=== PATIENT | male | born 1995 | race African-American/Black ===

== ENCOUNTER 2017-05-06 00:44 | Emergency (ER) | payer SELFPAY ==
[2017-05-06] MEDS ORDERED: SUCRALFATE 1 GM TABLET PO ONE (01:29)
[2017-05-06] MEDS ORDERED: FAMOTIDINE 20 MG TABLET PO ONE (01:29)
--- NOTE | 2017-05-06 01:31 | ER Document Report ---
ED GI/ - General Chief Complaint: Vomiting Stated Complaint: POSSIBLE FOOD POISONING Time Seen by Provider: 05/06/17 01:22 Notes: Patient is a 21-year-old male that comes emergency department for chief complaint of vomiting after eating, he states that 3 weeks ago he ate a hamburger and vomited afterwards and he has had this problem ever since. He states when he eats he becomes nauseated and sometimes he vomits. He denies any pain in the abdomen. He denies any hematemesis, he states he had a normal bowel movement 2 days ago, he denies fever, he denies any other symptoms. He takes no daily medications, has been taking some [id number] Pepto-Bismol, denies any surgeries or medical problems. TRAVEL OUTSIDE OF THE [place] IN LAST 30 DAYS: No Past Medical History - General Information source: Patient - Social History Smoking Status: Never Smoker Frequency of alcohol use: None Drug Abuse: None Lives with: Alone Family History: Reviewed & Not Pertinent Patient has suicidal ideation: No Patient has homicidal ideation: No - Medical History Medical History: Negative Renal/ Medical History: Denies: Hx Peritoneal Dialysis Surgical Hx: Negative - Immunizations Immunizations up to date: Yes Hx Diphtheria, Pertussis, Tetanus Vaccination: - unk tetanus Review of Systems - Review of Systems Constitutional: No symptoms reported EENT: No symptoms reported Cardiovascular: No symptoms reported Respiratory: No symptoms reported Gastrointestinal: See HPI Genitourinary: No symptoms reported Male Genitourinary: No symptoms reported Musculoskeletal: No symptoms reported Skin: No symptoms reported Hematologic/Lymphatic: No symptoms reported Neurological/Psychological: No symptoms reported Physical Exam - Vital signs Vitals: Temp Pulse Resp BP Pulse Ox 98.3 F 60 14 150/76 H 100 05/06/17 00:50 05/06/17 00:50 05/06/17 00:50 05/06/17 00:50 05/06/17 00:50 Interpretation: Normal - General General appearance: Appears well, Alert In distress: None - HEENT Head: Normocephalic, Atraumatic Eyes: Normal Pupils: PERRL - Respiratory Respiratory status: No respiratory distress Chest status: Nontender Breath sounds: Normal Chest palpation: Normal - Cardiovascular Rhythm: Regular Heart sounds: Normal auscultation Murmur: No - Abdominal Inspection: Normal Distension: No distension Bowel sounds: Normal Tenderness: Tender - Mild generalized upper abdominal tenderness with no guarding, rigidity or rebound tenderness. No: McBurney's point, Dunbar's sign, Guarding Organomegaly: No organomegaly - Back Back: Normal, Nontender - Extremities General upper extremity: Normal inspection, Nontender, Normal color, Normal ROM , Normal temperature General lower extremity: Normal inspection, Nontender, Normal color, Normal ROM , Normal temperature, Normal weight bearing. No: Jon's sign - Neurological Neuro grossly intact: Yes Cognition: Normal Orientation: AAOx4 Kelli Coma Scale Eye Opening: Spontaneous [place] Coma Scale Verbal: Oriented Kelli Coma Scale Motor: Obeys Commands Kelli Coma Scale Total: 15 Speech: Normal Motor strength normal: LUE, RUE, LLE, RLE Sensory: Normal - Psychological Associated symptoms: Normal affect, Normal mood - Skin Skin Temperature: Warm Skin Moisture: Dry Skin Color: Normal Course - Re-evaluation Re-evalutation: Chemistry unremarkable, lipase is not significantly elevated, after treatment with Pepcid, Carafate, patient's symptoms resolved. Clinical history does not indicate food poisoning, examination and workup did not indicate acute abdominal abnormality, patient will be treated for his symptoms with antacid therapy at home, discussed follow-up, discussed return precautions, patient states understanding and agreement. - Vital Signs Vital signs: Temp Pulse Resp BP Pulse Ox 98.6 F 69 14 131/74 H 99 05/06/17 04:00 05/06/17 04:00 05/06/17 04:00 05/06/17 04:00 05/06/17 04:00 - Laboratory Result Diagrams: 05/06/17 02:10 05/06/17 02:10 Laboratory results interpreted by me: 05/06/17 02:10 Lipase 333.3 H Discharge - Discharge Clinical Impression: Nausea & vomiting Qualifiers: Vomiting type: unspecified Vomiting Intractability: non-intractable Qualified Code(s): R11.2 - Nausea with vomiting, unspecified Condition: Stable Disposition: HOME, SELF-CARE Additional Instructions: Your laboratory workup shows no concerning findings. Your symptoms and examination suggest an upper gastrointestinal cause of your symptoms, recommendation is for you to take the Pepcid and Carafate as prescribed, avoid spicy foods, smoking, alcohol, caffeine, [id number] anti-inflammatories. You can take Tylenol for pain, Tums and Rolaids for upset stomach as well. Follow-up with primary care for additional evaluation and management. Return to the emergency department for any concerning or worsening symptoms including vomiting, vomiting blood, black stools, abdominal pain, or any other concerning symptoms. Prescriptions: Famotidine [Pepcid 20 mg Tablet] 20 mg PO BID #14 tablet Sucralfate [Carafate 1 gm Tablet] 1 gm PO QID #20 tablet
[2017-05-06 02:29] LABS: ABSOLUTE BASOPHILS # (AUTO) 0.1 10^3/uL (0.0-0.2); ABSOLUTE EOSINOPHILS # (AUTO) 0.2 10^3/uL (0.0-0.6); ABSOLUTE LYMPHOCYTES (AUTO) 2.9 10^3/uL (0.5-4.7); ABSOLUTE MONOCYTES (AUTO) 0.9 10^3/uL (0.1-1.4); ABSOLUTE NEUT (AUTO) 3.8 10^3/uL (1.7-8.2); BASOPHILS % (AUTO) 0.9 % (0-2); HEMATOCRIT 43.4 % (37.9-51.0); HEMOGLOBIN 15.3 g/dL (13.5-17.0); HGB HCT DIFFERENCE 2.5; LYMPHOCYTES % (AUTO) 36.4 % (13-45); MEAN CORPUSCULAR HEMOGLOBIN 32.2 pg (27.0-33.4); MEAN CORPUSCULAR HGB CONC 35.1 g/dL (32.0-36.0); MEAN CORPUSCULAR VOLUME 92 fl (80-97); MONOCYTES % (AUTO) 11.6 % (3-13); RED BLOOD COUNT 4.74 10^6/uL (4.35-5.55); RED CELL DISTRIBUTION WIDTH 12.5 % (11.5-14.0); SEGMENTED NEUTROPHILS % (AUTO) 48.1 % (42-78); WHITE BLOOD COUNT 7.9 10^3/uL (4.0-10.5)
[2017-05-06 02:38] LABS: ALANINE AMINOTRANSFERASE 34 U/L (21-72); ALBUMIN 4.3 g/dL (3.5-5.0); ALKALINE PHOSPHATASE 55 U/L (38-126); ANION GAP 13 (5-19); ASPARTATE AMINO TRANSFERASE 24 U/L (17-59); BILIRUBIN,DIRECT 0.3 mg/dL (0.0-0.4); BILIRUBIN,TOTAL 0.5 mg/dL (0.2-1.3); BLOOD UREA NITROGEN 12 mg/dL (7-20); CALCIUM 9.5 mg/dL (8.4-10.2); CARBON DIOXIDE 28 mmol/L (22-30); CHLORIDE 103 mmol/L (98-107); CREATININE RESULT 1.09 mg/dL (0.52-1.25); GLUCOSE 93 mg/dL (75-110); LIPASE 333.3 U/L (23-300); SODIUM 143.9 mmol/L (137-145); TOTAL PROTEIN 7.4 g/dL (6.3-8.2)
[2017-05-06 04:31] VITALS: BP 131/74
== END 2017-05-06 04:27 | disposition home or self-care (01) ==
LOC: ER 00:44
DX: R11.2 Nausea with vomiting, unspecified (principal)
CPT/HCPCS: 36415; 80053; 83690; 85025; 99284